=== PATIENT | female | born 1985 | race Two or more races ===

== ENCOUNTER 2020-04-03 07:00 | Day surgery (SDC) | payer OTHER ==
[~2020-04-03 07:00] MED LIST: ALDOMET PO
== END 2020-04-03 22:03 | disposition home or self-care (01) ==
LOC: CIR.AMB 07:00
PROVIDERS: ATTEND Obstetrics & Gynecology
DX: O34.31 Maternal care for cervical incompetence, first trimester (principal); Z20.828 Contact with and (suspected) exposure to other viral communicable diseases

== ENCOUNTER 2020-07-25 10:21 | Outpatient (CLI) | payer OTHER | END 2020-07-25 11:20 | disposition home or self-care (01) | LOC: NST 10:21 | PROVIDERS: ATTEND Obstetrics & Gynecology Maternal & Fetal Medicine | DX: Z34.83 Encounter for supervision of other normal pregnancy, third trimester (principal) ==

== ENCOUNTER 2020-08-09 12:20 | Outpatient (CLI) | payer OTHER | END 2020-08-09 12:45 | disposition home or self-care (01) | LOC: NST 12:20 | PROVIDERS: ATTEND Obstetrics & Gynecology | DX: Z34.83 Encounter for supervision of other normal pregnancy, third trimester (principal) ==

== ENCOUNTER 2020-08-23 15:28 | Outpatient (CLI) | payer OTHER | END 2020-08-23 17:27 | disposition home or self-care (01) | LOC: NST 15:28 | PROVIDERS: ATTEND Obstetrics & Gynecology Maternal & Fetal Medicine | DX: Z34.83 Encounter for supervision of other normal pregnancy, third trimester (principal) ==

== ENCOUNTER 2020-08-29 11:25 | Outpatient (CLI) | payer OTHER | END 2020-08-29 12:25 | disposition home or self-care (01) | LOC: NST 11:25 | PROVIDERS: ATTEND Obstetrics & Gynecology Maternal & Fetal Medicine | DX: Z34.83 Encounter for supervision of other normal pregnancy, third trimester (principal) ==

== ENCOUNTER 2020-09-10 08:45 | Inpatient (IN) | payer OTHER ==
[~2020-09-10] VITALS: Ht 170.2 cm; Wt 2.3 kg
[2020-09-11] MEDS ORDERED: METHYLDOPA HCT (11:20)
[2020-09-11] MEDS ORDERED: NIFEDIPINE ER30 M1 (11:20)
[2020-09-11] MEDS ORDERED: OBSTETRIX (11:20)
[2020-09-11] MEDS ORDERED: TOPROL XL100 M1 (11:21)
[2020-09-19] MEDS ORDERED: METHYLDOPA250 MG (15:59)
[2020-09-19] MEDS ORDERED: OBTREX DHA COM1 EACH (16:01)
== END 2020-09-20 17:17 | disposition home or self-care (01) | DRG 784 ==
LOC: SURH 09-18 07:00 → O/R 09-18 07:17 → OB/GYN 09-18 07:17 → LDR 09-18 07:54 → SURH 09-18 08:45 → OB/GYN 09-18 13:38
PROVIDERS: ADMIT Obstetrics & Gynecology; ATTEND Obstetrics & Gynecology
PROC: 0UB70ZZ Excision of Bilateral Fallopian Tubes, Open Approach (ICD-10-PCS; 2020-09-18)
PROC: 4A1HXFZ Monitoring of Products of Conception, Cardiac Rhythm, External Approach (ICD-10-PCS; 2020-09-18)
PROC: 10D00Z1 Extraction of Products of Conception, Low, Open Approach (ICD-10-PCS; principal; 2020-09-18 07:00)
DX: O65.5 Obstructed labor due to abnormality of maternal pelvic organs (principal); O10.02 Pre-existing essential hypertension complicating childbirth; O34.211 Maternal care for low transverse scar from previous cesarean delivery; Z30.2 Encounter for sterilization; Z3A.37 37 weeks gestation of pregnancy; Z37.0 Single live birth; Z20.822 Contact with and (suspected) exposure to COVID-19

== ENCOUNTER 2020-09-13 09:12 | Outpatient (CLI) | payer OTHER ==
[~2020-09-13 09:12] MED LIST changes: +METHYLDOPA HCT; +NIFEDIPINE ER30 M1; +OBSTETRIX; +TOPROL XL100 M1
== END 2020-09-13 12:10 | disposition home or self-care (01) ==
LOC: NST 09:12
PROVIDERS: ATTEND Obstetrics & Gynecology Maternal & Fetal Medicine
DX: Z34.83 Encounter for supervision of other normal pregnancy, third trimester (principal)

== ENCOUNTER 2020-09-13 10:19 | Outpatient (CLI) | payer OTHER | END 2020-09-13 11:23 | disposition home or self-care (01) | LOC: LAB 10:19 | PROVIDERS: ATTEND Obstetrics & Gynecology Maternal & Fetal Medicine | DX: Z20.828 Contact with and (suspected) exposure to other viral communicable diseases (principal); Z34.83 Encounter for supervision of other normal pregnancy, third trimester ==